=== PATIENT | female | born 1990 | race Hispanic/Latino ===

== ENCOUNTER 2024-05-10 04:54 | Emergency (ER) | payer SELFPAY | END 2024-05-10 13:23 | disposition short-term general hospital (02) | LOC: CSHERS 04:54 | DX: O00.80 Other ectopic pregnancy without intrauterine pregnancy (principal); O08.9 Unspecified complication following an ectopic and molar pregnancy; Z3A.01 Less than 8 weeks gestation of pregnancy | CPT/HCPCS: 76801 ==